=== PATIENT | female | born 1990 | race Caucasian/White ===

== ENCOUNTER 2019-12-21 08:54 | Emergency (ER) | payer OTHER ==
[2019-12-21 09:21] VITALS: TEMP 98.2; BMI 27.4
[2019-12-21] MEDS ORDERED: ONDANSETRON 4 MG/2 ML VIAL IVPUSH ONE (09:48)
[2019-12-21] MEDS ORDERED: SODIUM CHLORIDE 0.9% 500 ML INFUS.BAG IV ONE (09:48)
--- OUTSIDE RECORDS SUMMARY | 2019-12-21 10:06 | XMS ---
:1990 Author Organization [facility] Care Team Providers Name Role Phone RAJIWNDER AVALOS, ZINA Unavailable RAJWINDER AVALOS, ZINA Unavailable RAJWINDER AVALOS, ZINA Unavailable RAJWINDER AVALOS, ZINA Unavailable ED STAFF PHYSICIANBERNABE Unavailable Unavailable KENN HARVEY Unavailable Unavailable ED STAFF PHYSICIAN, STAFF Unavailable Unavailable JOCELYNE AVALOS, SAUD Unavailable SAUD CASANOVA MD Unavailable JOCELYNE AVALOS, SAUD Unavailable SAUD CASANOVA MD Unavailable JOCELYNE AVALOS, SAUD Unavailable Rachel Purdy Unavailable [phone] ED STAFF PHYSICIAN, DONNA Unavailable Unavailable Margaret AVALOS, Mary Beth Unavailable Unavailable LEVY CNM, RAJI Unavailable LEVY CNM, RAJI Unavailable JUSTO MATERNITY NURSE, GEMINI Unavailable JUSTO MATERNITY NURSE, GEMINI Unavailable SHELTON AVALOS, HUMA Unavailable SHELTON AVALOS, HUMA Unavailable SHELTON AVALOS, HUMA Unavailable ELIA AVALOS, ERROL Unavailable ELIA AVALOS, ERROL Unavailable ELIA AVALOS, ERROL Unavailable SALO SAMPSON, JANETH Unavailable DEAN AVALOS, YAKELIN Unavailable Dix, Francisca-Brittany Unavailable [phone] Dix, Francisca-Brittany Unavailable [phone] Chelsea Alcocer Unavailable [phone] PRISCILA PAT Unavailable PRISCILA PAT Unavailable Re-disclosure Warning The records that you are about to access may contain information from federally- assisted alcohol or drug abuse programs. If such information is present, then the following federally mandated warning applies: This information has been disclosed to you from records protected by federal confidentiality rules (42 CFR part 2). The federal rules prohibit you from making any further disclosure of this information unless further disclosure is expressly permitted by the written consent of the person to whom it pertains or as otherwise permitted by 42 CFR part 2. A general authorization for the release of medical or other information is NOT sufficient for this purpose. The Federal rules restrict any use of the information to criminally investigate or prosecute any alcohol or drug abuse patient.The records that you are about to access may contain highly sensitive health information, the redisclosure of which is protected by Article 27-F of the [facility] Public Health law. If you continue you may haveaccess to information: Regarding HIV / AIDS; Provided by facilities licensed or operated by the [facility] Office of Mental Health; or Provided by the [facility] Office for People With Developmental Disabilities. If such information is present, then the following [facility] mandated warning applies: This information has been disclosed to you from confidential records which are protected by state law. State law prohibits you from making any further disclosure of this information without the specific written consent of the person to whom it pertains, or as otherwise permitted by law. Any unauthorized further disclosure in violation of state law may result in a fine or [place] health care facility sentence or both. A general authorization for the release of medical or other information is NOT sufficient authorization for further disclosure. 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 Data Description Source(s ) Other Directive completed NEXT GEN ([facility]) Tube Feedings completed NEXTGE N ([facility]) IV Fluid and completed NEXTGEN Support ([facility]) Antibiotics [facility] Intubation completed [facility]) Life Support completed [facility] ([facility]) CPR completed NEXTGEN ([facility]) Other Directive completed NEXT GEN ([facility]) Tube Feedings completed NEXTGE N ([facility]) IV Fluid and completed NEXTGEN Support ([facility]) Antibiotics [facility] ([facility]) Intubation completed NEXTGEN ([facility]) Life Support completed COUNTS INCLUDE 234 BEDS AT THE [facility] ([facility]) CPR completed COUNTS INCLUDE 234 BEDS AT THE [facility] ([facility]) Allergies and Adverse Reactions Type Description Substance Reaction Status Data Source(s ) Allergy to No Known No known VIKTOR (Moun t substance Allergies allergies Zafar ([facility]3]) [facility]) Drug allergy Azithromycin Azithromycin (moderate to NEXTGE N ([facility]) [facility] moderate to Center) severe No Known No Known No Known eCW3 ([place] Allergies Allergies Allergies [facility]) No Known No Known No Known eCW3 ([place] Allergies Allergies Allergies [facility]) No Known No Known No Known eCW3 ([place] Allergies Allergies Allergies [facility]) Encounters Encounter Providers Location Date Indications Data Source(s ) Emergency Attender: DONNA ED H 02/02/2019 [facility] STAFF 10:39:00 AM EDT Medical C enter PHYSICIANAttender: - 02/02/2019 [facility] STAFF 01:34:00 PM EDT PHYSICIANAttender: STAFF ED STAFF PHYSICIANAdmitter: DONNA ED STAFF PHYSICIAN Patient discharged. Outpatient [place] 01/10/2019 eCW3 ([facility] 12:00:00 AM [facility] A28 EDT - Care) 01/10/2019 12:00:00 AM EDT Emergency H 08/11/2018 [facility] 12:59:00 AM Medical Cente r EDT Outpatient [place] 08/10/2018 eCW3 ([facility]:00:00 [facility] A[facility]T - Care) 08/10/2018 12:00:00 AM EDT Outpatient [place] 07/14/2018 eCW3 ([facility] 12:00:00 AM [facility] A28 EDT - Care) 07/14/2018 12:00:00 AM EDT Outpatient<td Attender: Suzan 05/09/2018 Neftalye VIKTOR (M ount ID="encounterT [facility] 10:30:00 AM ThroatSinusitis Oren on [facility] EST [facility] ID0">WALK[facility]</ 05/09/[address]) td><td>GEMINI 11:59:00 PM [facility]</td><td>[facility]</td><td >05/09/2018</t d><td><content ID="encounterD iagnosisID0-0" >Sinusitis</co ntent>, <content ID="encounterD iagnosisID0-1" >Sore Throat</conten t></td> Sore Throat Sinusitis Outpatient<td Attender: Suzan 03/04/2017 Pharyngitis VIKTOR ID="encounterTypeDescriptionID1">WALKINS</td><td>[facility] 09:00:00 AM (Kaci PURDY MD</td><td>[facility] RAJWINDER AVALOS [facility] EST [facility]</td><td>03/04/2017</td><td><content Center 02/05 Health ID="encounterDiagnosisID1-0">Pharyngitis</content></td> 09:32:18 AM Center) EST Pharyngitis Outpatient<td Attender: Suzan 02/01/2017 VIKTOR ID="encounterTypeDescriptionID2">OFFICE [facility] 10:30:0 0 AM ([place] VISIT</td><td>RAJI LEVY LEVYLOS [facility] Health EDT - [facility]</td><td>[facility] 02/01/2017 Health Center</td><td>02/01/2017</td><td></td> 10:50:5 9 AM Center) EDT Outpatient<td Attender: Suzan 01/25/2017 A VIKTOR ID="encounterTypeDescriptionID3">OFFICE [facility] 11:00:0 0 AM s ([place] VISIT</td><td>RAJI LEVY LEVYLOS [facility] Health EDT - [facility]</td><td>[facility] 01/25/2017 e Health Center</td><td>01/25/2017</td><td><jarrod 12:25: 31 PM s Center) nt EDT s ID="encounterDiagnosisID3-0">Assessment m [use For S.o.a.p. Note Free e Text]</content></td> n t [ u s e F o r S . o . a . p . N o t e F r e e T e x t ] Assessment [use For S.o.a.p. Note Free T ext] Outpatient<td Attender: Suzan 01/13/2017 Familial VIKTOR ID="encounterTypeDescriptionID4">OFFICE [facility] 0 9:30:00 AM Hypertriglyceridemia ([place] VISIT</td><td>[facility] EDT - [facility]</td><td>[facility] MATERNITY NURSE Center 01/13/2017 Health Center</td><td>01/13/2017</td><td><content 10:1 6:24 AM Center) ID="encounterDiagnosisID4-0">Familial EDT Hypertriglyceridemia</content></td> Familial Hypertriglyceridemia Outpatient<td Attender: Suzan 01/12/2017 UKIAH ID="encounterTypeDescriptionID5">*OUTREACH*</td><td>[facility] 06:17:00 PM ([facility]</td><td>[facility] E DT - Neighborhood Center</td><td>01/12/2017</td><td></td> MATERNITY NURSE Center 017 Health 11:59:00 PM Center) EDT Outpatient<td ID="encounterTypeDescriptionID6">OFFICE Attender: Suazn 01/06/2017 [place] VISIT</td><td>[facility]</td><td>[facility] 09:15:00 AM ([facility]</td><td>01/06/2017</td><td></td> [facility] EDT - Neighborhood MATERNITY NURSE Center 01/06/2017 Health 11:07:59 AM Center) EDT Outpatient<td Attender: Suzan 09/14/2016 UKIAH ID="encounterTypeDescriptionID7">*OUTREACH*</td><td>[facility] 09:33:00 AM ([facility]</td><td>[facility] E DT - Neighborhood Center</td><td>09/14/2016</td><td></td> MATERNITY NURSE Center 017 Health 11:59:00 PM Center) EDT Outpatient<td Attender: Suzan 09/11/2016 O UKIAH ID="encounterTypeDescriptionID8">WALKINS</td><td>[facility] 09:30:00 AM v ([facility]</td><td>[facility] Health E DT - e Neighborhood Center</td><td>09/11/2016</td><td><content MATERNITY NURSE Center 12/2016 Health ID="encounterDiagnosisID8-0">Sinusitis</content>, <content 11:16:56 AM w Center) ID="encounterDiagnosisID8-1">Sore Throat</content>, EDT e <content i ID="encounterDiagnosisID8-2">Overweight</content></td> g h t S o r e T h r o a t S i n u s i t i s Overweight Sore Throat Sinusitis Outpatient<td Attender: Suzan 03/25/2016 UKIAH ID="encounterTypeDescriptionID9">[facility] 12:30:00 P M ([place] [facility]</td><td>ERROL RODRIGEZ MD [facility] EST - Neighborhood </td><td>[facility] 03/25/2016 Health Center</td><td>03/25/2016</td><td></td> 02:22:2 0 PM Center) EST Outpatient<td Attender: Suzan 03/14/2016 UKIAH ID="nuptzfyawAzwyPdbksicuhhtLL92">[facility] 03:22: 00 PM ([place] [facility]*</td><td>ERROL RODRIGEZ MD [facility] EST - Neighborhood </td><td>[facility] 03/14/2016 Health Center</td><td>03/14/2016</td><td></td> 11:59:0 0 PM Center) EST Outpatient<td Attender: Suzan 03/09/2016 UKIAH ID="lqkuxmvuxQzgoQtntlhyirjeNL24">[facility] 09:[facility]: [facility] AM ([place] </td><td>ERROL RODRIGEZ MD Health EST - Neighborhood </td><td>[facility] 03/09/2016 Health Center</td><td>03/09/2016</td><td></td> 02:23:3 4 PM Center) EST Outpatient<td Attender: Suzan 11/14/2015 VIKTOR ID="maqkblczfZdiuSecylybcmexCI09">*No [facility] 03:15:00 PM ([place] Show*</td><td>[facility] EDT - Neighborhood RD</td><td>[facility] 11/14/2015 Health Center</td><td>11/14/2015</td><td></td> 11:59:0 0 PM Center) EDT Outpatient<td Attender: Suzan 09/23/2015 VIKTOR ID="lrrwkhfiyNwfeAywlbolljilOS27">Follow ZINA [facility] 09:00: 00 AM ([place] Up</td><td>ZINA PURDY MD [facility] EDT - [facility] </td><td>[facility] 09/23/2015 Health Center</td><td>09/23/2015</td><td></td> 09:48:0 3 AM Center) EDT Outpatient<td Attender: 09/17/2015 VIKTOR ID="cyzkdfhgcUaumIcthkftjzkkCP22">[Bang IZAGUIRRE 04:01: 00 PM ([place] nt Encounter]</td><td>ZINA PURDY MD EDT - Neighborhood </td><td> 09/17/2015 Health </td><td>09/17/2015</td><td></td> 11:59:00 PM Center) EDT Outpatient<td Attender: 09/16/2015 VIKTOR ID="qyxualhszLkmiVwejzrmjqdfCP26">[Bang IZAGUIRRE 10:10: 00 AM ([place] nt Encounter]</td><td>ZINA PURDY MD EDT - Neighborhood </td><td> 09/16/2015 Health </td><td>09/16/2015</td><td></td> 11:59:00 PM Center) EDT Outpatient<td Attender: Suzan 09/11/2015 VIKTOR ID="dowupbltxTpcgNdnrggyoybeMK71">OFFICE [facility] 02:30: 00 PM ([place] VISIT</td><td>ZINA PURDY MD Health EDT - Neighborhood </td><td>[facility] 09/11/2015 Health Center</td><td>09/11/2015</td><td></td> 02:58:3 6 PM Center) EDT Outpatient<td Attender: Suzan 07/15/2015 A VIKTOR ID="ouqqbxkytNjwdHctqyztudmpSD26">[facility] 09:45: 00 AM b ([place] S</td><td>[facility] EDT - d [facility] MATERNITY NURSE</td><td>Critical access hospital Center 07/15/2015 o Health Center</td><td>07/15/2015</td><td><jarrod 10:54: 28 AM m Center) nt EDT i ID="dylgrutucBodhpmngmKY85-9">Abdominal n Pain</content></td> a l P a i n Abdominal Pain Outpatient<td Attender: Suzan 05/29/2015 Vitamin VIKTOR ID="wgdetzalkYhthXqkjyfbcenhRF79">[facility]</td><td>[facility] 09:00:00 AM Deficiency ([place] [facility]</td><td>[facility] E ST - Neighborhood Center</td><td>05/29/2015</td><td><content MATERNITY NURSE Center 05/07 Health ID="ayqnlpujnPvljbpnfvKZ39-7">Vitamin 11:06:48 AM Center) Deficiency</content></td> EST Vitamin Deficiency Outpatient<td Attender: Suzan 05/22/2015 Polycystic VIKTOR ID="yjtxcxinhQpupEtduichmgxtKN48">Follow [facility] 09:30: 00 AM Ovarian (Kaci Stephen Up</td><td>ERROL RODRIGEZ MD Health EST - Syndrome Neighborhood </td><td>[facility] 05/22/2015 (pcos) Health Center</td><td>05/22/2015</td><td><content 01:1 6:34 PM Center) ID="nmoocjqxdVovueasxqRG80-9">Polycystic EST Ovarian Syndrome (pcos)</content></td> Polycystic Ovarian Syndrome (pcos) Outpatient<td Attender: Suzan 05/17/2015 PrediabetesHyperlipide miaVitamin UKIAH ID="gjnbzktwpHlfoGjukujfpkssCO29">[facility]</td><td>[facility] 12:15:00 PM DeficiencyOtitis MediaSore Throat ([facility]</td><td>[facility] E ST - Neighborhood Center</td><td>05/17/2015</td><td><content MATERNITY NURSE Center 05/06 Health ID="hfjhxnseiQecmgdwyaBJ27-6">Sore Throat</content>, 01:39:37 PM Center) <content ID="porbrjlylMraxsrzhqTX63-5">Otitis E ST Media</content>, <content ID="myrfutnexXpjokxnctDC34-8">Vitamin Deficiency</content>, <content ID="kvbnqannrMbfckjitfZV46-2">Hyperlipidemia</content>, <content ID="ezeydgkhzWjdqjtdznSL94-7">Prediabetes</content></td> Prediabetes Hyperlipidemia Vitamin Deficiency Otitis Media Sore Throat Outpatient<td ID="pvtubbmyoHnbhBkqdvmgktpbVW67">Follow Attender: Suzan 05/13/2015 Pharyngitis VIKTOR Up</td><td>[facility]</td><td>[facility] 09:30:00 AM ([facility]</td><td>05/13/2015</td><td><content [facility] EST - Neighborhood ID="ekordhdixZydyvywwdLW02-1">Pharyngitis</content></td> MATERNITY NURSE C enter 05/13/2015 Health 09:39:31 AM Center) EST Pharyngitis Outpatient<td Attender: Suzan 05/07/2015 VIKTOR ID="mrkrjbqpnQlmkOamtraglkdyFA92">Regular [facility] 06:00 :00 PM ([place] Sonogram</td><td>YAKELIN MORAN MD [facility]</td><td>[facility] 05/07/2015 Health Center</td><td>05/07/2015</td><td></td> 11:59:0 0 PM Center) EST Outpatient<td Attender: Suzan 05/06/2015 VIKTOR ID="rnxhrbyalZvzfDzpkffbilyvHS94">[facility] 04:1 5:00 PM (Kaci Stephen /td><td>[facility]</td><td>[facility] Center 05/06/2015 Health Center</td><td>05/06/2015</td><td></td> 02:50:4 3 PM Center) EST Outpatient<td Attender: Suzan 05/06/2015 VIKTOR ID="qowtsgodkAjyuVzkwaolctegXY42">[facility] 02:0 0:00 PM ([place] [place] /td><td>ERROL RODRIGEZ MD</td><td>Suzan RODRIGEZ MD [facility] 05/06/2015 Health Center</td><td>05/06/2015</td><td></td> 10:10:1 1 AM Center) EST Outpatient<td Attender: Suzan 05/02/2015 VIKTOR ID="zmhjkcxckEcumUntnhtvlcdkOE10">[facility] 09:0 0:00 AM ([place] Stephen /td><td>ERROL RODRIGEZ MD</td><td>Suzan RODRIGEZ MD [facility] 05/02/2015 Health Center</td><td>05/02/2015</td><td></td> 11:59:0 0 PM Center) EST Outpatient<td Attender: Suzan 04/09/2015 VIKTOR ID="bnjruefjuYvawBrzgodusinsUU53">*[facility] 03:24:00 PM ([place] Show*</td><td>ERROL RODRIGEZ MD Health EST - Neighborhood MD</td><td>[facility] Center 04/09/2015 Health Center</td><td>04/09/2015</td><td></td> 11:59:0 0 PM Center) EST Outpatient<td Attender: Suzan 04/09/2015 VIKTOR ID="azqjfjghqKdikNeucqheqjvjKE21">[facility] 09:1 5:00 AM (Kaci Stephen /td><td>[facility] EST - Neighborhood MD</td><td>[facility] 04/09/2015 Health Center</td><td>04/09/2015</td><td></td> 10:18:5 7 AM Center) EST Outpatient<td Attender: Suzan 03/28/2015 VIKTOR ID="fpaltxfdxJozbEznapeblwxmUI74">*[facility] 02:28:00 PM ([place] [facility] Show*</td><td>[facility] EST - Neighborhood RD</td><td>[facility] 03/28/2015 Health Center</td><td>03/28/2015</td><td></td> 11:59:0 0 PM Center) EST Outpatient<td Attender: Suzan 03/11/2015 VIKTOR ID="ozbnjjsbrQxxiQxhcgtdpucoWV92">OFFICE [facility] 01:45: 00 PM ([place]aci Stephen VISIT</td><td>ZINA PURDY MD Health EST - Neighborhood MD</td><td>[facility] Center 03/11/2015 Health Center</td><td>03/11/2015</td><td></td> 03:17:4 2 PM Center) EST Outpatient<td Attender: Suzan 02/04/2015 VIKTOR ID="ksqlxtcqcTaxtMjivvllegieXJ24">Follow [facility] 09:30: 00 AM ([place] Up</td><td>JANETH LEONG [facility] EST - Neighborhood INFORMATION SECURITY CONSULTANT</td><td>[facility] 02/04/2015 Health Center</td><td>02/04/2015</td><td></td> 09:50:4 7 AM Center) EST Outpatient<td Attender: Suzan 02/01/2015 VIKTOR ID="bhzwqxjcaAnsiFbhlqrgdclaIV41">Follow [facility] 09:30: 00 AM ([place] Up</td><td>ZINA PURDY MD</td><td>Suzan PURDY MD Health EDT - [facility] 02/01/2015 Health Center</td><td>02/01/2015</td><td></td> 09:45:1 7 AM Center) EDT Outpatient<td Attender: Suzan 01/24/2015 P UKIAH ID="idosjfzrjFilxIzffwdrpwzrPJ15">Follow [facility] 09:30: 00 AM u ([place] Up</td><td>ZINA PURDY MD</td><td>Suzan PURDY MD Health EDT - [facility] 01/24/2015 e Health Center</td><td>01/24/2015</td><td><content 10:4 6:19 AM H [place]) ID="edecrhlutWzlfnejdrFB21-8">Gout</conten EDT y t>, <content p ID="vnwzbgewoXfibtsumzNZ27-5">Pure e Hyperglyceridemia</content></td> r g l y c e r i d e m i a G o u t Pure Hyperglyceridemia Gout Outpatient<td Attender: 01/22/2015 VIKTOR ID="aodzaojjaTavtFbgdzdnljmcIS36">[Patient RINEnoch 03:3 5:00 PM (Kaci Stephen Encounter]</td><td>ZINA PURDY MD</td><td> RAJWINDER AVALOS EDT - [facility] 01/22/2015 Health </td><td>01/22/2015</td><td></td> 11:59:00 PM Center) EDT Outpatient<td Attender: Dillan 01/21/2015 VIKTOR ID="kmjbddtakHtnuFnyphnceolnHM92">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 ers 09:00:00 AM ([place] ANNUAL</td><td>JANETH LEONG Comm EDT - [facility] INFORMATION SECURITY CONSULTANT</td><td>[facility] INFORMATION SECURITY CONSULTANT unit 01/21/2015 Health Center</td><td>01/21/2015</td><td></td> y 10:43:1 6 AM Center) Heal EDT th Cent er Outpatient<td Attender: Dillan 01/16/2015 Wilber HOANG ID="pvrefzreiZzshPoozxqlpgakMX84">COMPLETE RINY ers 11:0 0:00 AM ine ([place] PHYSICAL EXAM</td><td>ZINA PURDY MD Comm EDT - [facility] </td><td>[facility] unit 01/16/2015 [facility]</td><td>01/16/2015</td><td><content y 12:4 5:41 PM and Center) ID="jmrfstgkhTqttorpwyOR54-1">Gout</content Heal EDT Phys >, <content th ical ID="oejfxepezLbxupwnbwEP53-3">Routine Cent Adul History and Physical Adult (18 - 64 er t Yrs)</content></td> (18 - 64 Yrs) Gout Routine History and Physical Adult (18 - 64 Yrs) Gout [facility] 12/19/2014 NEXTGEN (Sa int Center 03:17:00 PM [facility] Medic al EDT - Center) 12/19/2014 03:17:00 PM EDT Attender: [facility] 12/04/2014 NEXTGEN (Sa int [place] [facility] 06:39:00 PM Herac[facility] Medic al [place] EDT - Center) a 12/04/2014 06:39:00 PM EDT Attender: [facility] 06/28/2014 NEXTGEN (Sa int [place] [facility] 05:29:00 PM Heraclio Medic al [place] EDT - Center) 06/28/2014 05:29:00 PM EDT Attender: [facility] 06/01/2014 NEXTGEN (Sa int PRISCILA Center 09:29:00 AM [facility] Medic al ADILIA EST - Center) 06/01/2014 09:29:00 AM EST Attender: [facility] 05/28/2014 NEXTGEN (Sa int [place] Center 10:15:00 AM [facility] Medic al [place] EST - Center) 05/28/2014 10:15:00 AM EST Attender: [facility] 04/09/2014 NEXTGEN (Sa int [place] [facility] 03:39:00 PM [facility] Medic al [place] EST - Center) 04/09/2014 03:39:00 PM EST Attender: [facility] 03/27/2014 NEXTGEN (Sa int [facility] Center 04:49:00 PM Heraclio rosario MD EST - Center) 03/27/2014 04:49:00 PM EST Attender: [facility] 02/02/2014 NEXTGEN (Sa int [place] Center 10:44:00 AM [facility] Medic al [place] EDT - Center) 02/02/2014 10:44:00 AM EDT [facility] 01/18/2014 NEXTGEN (Sa int Center 09:44:00 AM [facility] Medic al EDT - Center) 01/18/2014 09:44:00 AM EDT Attender: [facility] 01/10/2014 NEXTGEN (Sa int [facility] Center 10:33:00 AM Heraclio Med icabay EDT - Center) 01/10/2014 10:33:00 AM EDT Attender: [facility] 01/05/2014 NEXTGEN (Sa int [place] Center 10:43:00 AM Herac[facility] Medic al [place] EDT - Center) 01/05/2014 10:43:00 AM EDT Attender: [facility] 12/25/2013 NEXTGEN (Sa int [place] Center 01:27:00 PM Heraclio Medic al [place] EDT - Center) 12/25/2013 01:27:00 PM EDT Attender: Family [facility] 12/11/2013 NEXTGEN (Sa int [facility] Center 09:14:00 AM Heraclio rosario MD EDT - Center) 12/11/2013 09:14:00 AM EDT Outpatient<td Attender: Suzan 01/20/2013 VIKTOR armstrongnt ID="Jakob MISTRYN [facility] 11:39:00 AM Zafar CASANOVA MD Health Center EDT - Neigh borhood 36">*No 01/20/2013 Health Center) Show*</td><td>R 11:59:00 PM LAMONT EDWARDS MD</td><td>[facility]</td><td> 01/20/2013</td> <td></td> Outpatient<td Attender: Suzan 01/13/2013 [facility] 09:29[facility]00 AM [use For Zafar NarvaezcriptGerardo CASANOVA MD [facility] Center EDT - S.o.a.p. Note Ne ighborhood 37">COMPLETE 01/13/2013 Free Text] Health Cente r) PHYSICAL 11:05:43 AM EXAM</td><td>RO EDT HINA CASANOVA MD</td><td>[facility]</td><td> 01/13/2013</td> <td><content ID="encounterDi hzlngulYI26-5"> Assessment [use For S.o.a.p. Note Free Text]</content> </td> Assessment [use For S.o.a.p. Note Free T ext] Immunizations Vaccine Date Status Description Data Source(s) MMR 11/23/2019 11:02:00 completed eCW3 ([place] [facility]) New in 2011. IIV4 01/30/2019 02:31:00 completed eC W3 ([place] [facility] Health Care) MMR 08/10/2018 08:31:00 completed eCW3 ([place] [facility] Health Care) MMR 08/10/2018 08:31:00 completed eCW3 ([place] [facility] Health Care) Tdap 07/14/2018 04:01:00 completed eCW3 ([place] [facility] Health Care) Tdap 07/14/2018 04:01:00 completed eCW3 ([place] [facility] [facility]) New in 2011. IIV4 12/27/2017 04:35:00 completed eC W3 ([place] [facility]) IIV3. This 01/06/2017 completed Influenza 2 01/06/2017 Left Active [facility] is one of 10:43:00 AM Deltoid (Administered) Neighborhood ([facility] Neighborhood replacing Heal th CVX 15, Center ) which is being retired. Note: Administered as ordered no c/o, Pa tient is held for 30 mins of observation before discharge. MJ IIV3. This 01/16/2015 completed Influenza 1 01/16/2015 Left Active [place] VIKTOR is one of 01:18:00 PM Arm (Administered) [facility] ([facility] Neighborhood replacing [facility] th CVX 15, Center ) which is being retired. IIV3. This vaccine 01/05/2014 12:00:00 completed flu (split) NE XTGEN ([facility] code is one of two AM EDT preservative free, 3 J [facility] Medical which replace CVX yrs or older Center) 15, influenza, split virus. Source: New Immunization Record As of December 1998, a 12/11/2013 12:00:00 completed Hep B (jayne lt) NEXTGEN ([facility] 2-dose hepatitis B AM EDT Herac[facility] schedule for [place]) adolescents (11-15 year olds) was FDA approved for Merck's Recombivax HB adult formulation. Use code 43 for the 2-dose. This code should be used for any use of standard adult formulation of hepatitis B vaccine. Source: New Immunization Record Tdap 12/11/2013 12:00:00 AM EDT completed Tdap N EXTGEN ([facility]) Source: New Immunization Record HPV, quadrivalent 12/11/2013 12:00:00 AM EDT completed HPV NEXTGEN ([facility]) Source: New Immunization Record Medications Medication Brand Start Product Dose Route Administrative Pharmacy [facility] Indications Reaction Description Data Name Date Form Instructions Instructions Source(s) Ibuprofen Ibupro 11/28/ active Ibuprofen eCW3 600 MG Oral fen 2020 600 MG ([place] n Tablet 600 MG 12:00: [place] 00 AM Health EDT Care) Clarithromy Clarit 1.0 suspend Clarit hromyc eCW3 yoko 500 MG hromyc 2020 {tabl ed in 500 MG ( [place] Oral Tablet in 500 12:00: et} Rive r MG 00 AM Health EDT Care) Amoxicillin Amoxic 09/11/ 2.0 suspend Amoxic illin eCW3 500 MG Oral illin 2020 {caps ed 500 MG (Hud son Capsule 500 MG 12:00: ule} [place] 00 AM Health EDT Care) pantoprazol Pantop 1.0 suspend Pantop razole eCW3 e 40 MG razole 2019 {tabl ed Sodium 40 MG ( [place] Delayed Sodium 12:00: et} [place] Release 40 MG 00 AM Health Oral Tablet EDT Care) Pantoprazol e Sodium 40 MG Sulligent 3 Sulligent .0 active Sulligent 3 1200 eCW3 1200 MG 3 1200 2019 {caps MG ([place] MG 12:00: ule} [place] 00 AM Health EDT Care) Hydrocortis Hydroc .0 active Hydroco rtiso eCW3 one 10 ortiso 2019 {appl ne 1 % ([place] MG/ML ne 1 % 12:00: icati [place] Topical 00 AM on} Health Cream EDT Care) Hydrocortis one 1 % Loratadine Clarit 05/09/ UNIT 1 active Claritin VIKTOR 10 MG Oral in 2019 ([place] Capsule 10MG 12:00: Zafar Claritin Oral 00 AM [place] 10MG Oral Capsul EST od Healt h Capsule, e, Center) conventiona conven l tional Amoxicillin Augmen 05/09/ UNIT 1 active Augment in VIKTOR 875 MG / tin 2018 ([facility] Clavulanate 875-12 12:00: Oren on 125 MG Oral 5MG 00 AM [place] rho Tablet Oral EST od Health Augmentin Tablet Center) 875-125MG Oral Tablet 60 ACTUAT Ventol 05/09/ INHALATI active Kathleen shereen VIK[place] Albuterol in HFA 2019 ON ([facility] 0.09 108 12:00: DOSING Zafar MG/ACTUAT (90 00 AM UNIT [place] Metered Base)M EST od Health Dose CG/ACT Center) Inhaler Inhala Ventolin tion HFA 108 (90 Aeroso Base)MCG/AC l, T soluti Inhalation on Aerosol, solution Ergocalcife Ergoca .0 active Ergocal cifer eCW3 rol 02184 lcifer 2017 {caps ol 80333 (Hu dson UNT Oral ol 12:00: ule} UNIT [place] Capsule 14070 00 AM Health Ergocalcife UNIT EDT Care) rol 30757 UNIT Ergocalcife Ergoca 1.0 active Ergocal cifer eCW3 rol 26319 lcifer 2018 {caps ol 71193 (Hu dson UNT Oral ol 12:00: ule} UNIT [place] Capsule 20039 00 AM Health Ergocalcife UNIT EDT Care) rol 13950 UNIT Ergocalcife Ergoca 08/31/ 1.0 active Ergocal cifer eCW3 rol 33236 lcifer 2018 {caps ol 99327 (Hu dson UNT Oral ol 12:00: ule} UNIT [place] Capsule 85511 00 AM Health Ergocalcife UNIT EDT Care) rol 11709 UNIT Amoxicillin Amoxic 03/04/ UNIT 1 active Amoxici llin VIKTOR 500 MG Oral illin 2016 ([place] Tablet 500MG 12:00: Zafar Amoxicillin Oral 00 AM Neigh[place] rho 500MG Oral Tablet EST od Heal th Tablet Center) No OTC No OTC 01/06/ UNIT active No OTC Drugs VIK[facility] Drugs Oral Drugs 2016 ([place] Tablet Oral 12:00: Zafar Tablet 00 AM [place] EDT od Health Center) Acetaminoph Tyleno 09/11/ UNIT complet Tyleno l VIKTOR en 325 MG l 2016 ed ([place] Oral Tablet 325MG 12:00: Verno n Tylenol Oral 00 AM [place] 325MG Oral Tablet EDT od Heal th Tablet Center) Loratadine Clarit 09/11/ UNIT 1 complet Clariti n VIKTOR 10 MG Oral in 2016 ed ([place] Capsule 10MG 12:00: Zafar Claritin Oral 00 AM [place] 10MG Oral Capsul EDT od Healt h Capsule, e, Center) conventiona conven l tional Amoxicillin Augmen 09/11/ UNIT 1 complet Augmen tin VIKTOR 875 MG / tin 2016 ed ([place] Clavulanate 875-12 12:00: Oren on 125 MG Oral 5MG 00 AM [place]igh[place]ho Tablet Oral EDT od Health Augmentin Tablet Center) 875-125MG Oral Tablet valacyclovi Valtre 03/09/ UNIT complet Valtre x VIKTOR r 500 MG x 500 2015 ed ([place] Oral Tablet MG 12:00: Zafar Valtrex 500 Tablet 00 AM Neigh borho MG Tablet EST od Health Center) Fenofibrate Tricor 09/22/ UNIT 1 active Tricor VIKTOR 145 MG Oral 145 MG 2015 ([place] Tablet Tablet 12:00: Zafar Tricor 145 00 AM Neighbor ho MG Tablet EDT od Health Center) Fenofibrate Tricor 09/10/ UNIT 1 active Tricor VIKTOR 48 MG Oral 48 MG 2015 ([place] Tablet Tablet 12:00: Zafar Tricor 48 00 AM Neighborh o MG Tablet EDT od Health Center) Ibuprofen Ibupro 07/14/ UNIT complet Ibuprofe n VIKTOR 600 MG Oral fen 2015 ed ([place] Tablet 600 MG 12:00: Zafar Ibuprofen Tablet 00 AM Neigh[place] rho 600 MG EDT od Health Tablet Center) Ergocalcife Drisdo 05/29/ UNIT complet Drisdo l VIKTOR rol 89117 l 2015 ed ([place] UNT Oral 18680 12:00: Zafar Capsule UNIT 00 AM [place] Drisdol Capsul EST od Health 98077 UNIT e Center) Capsule Amoxicillin Amoxic 05/17/ UNIT 1 complet Amoxic illin VIKTOR 500 MG Oral illin 2015 ed ([place] Tablet 500 MG 12:00: Zafar Amoxicillin Tablet 00 AM Neigh borho 500 MG EST od Health Tablet Center) Benzocaine Cepaco 05/13/ UNIT 1 complet Cepacol Sore VIKTOR 15 MG / l Sore 2015 ed Throat Pain (Mo unt Menthol 2.6 Throat 12:00: Relief Ve rnon MG Oral 15-2.6 00 AM [place] o Lozenge MG EST od Health Cepacol Lozeng Center) Sore Throat e 15-2.6 MG Lozenge medroxyprog Catalogue Clerk 05/06/ UNIT 1 complet Catalogue Clerk a VIKTOR esterone a 2015 ed ([place] acetate 10 MG 12:00: Zafar MG Oral Tablet 00 AM Neighbor[facility] o Tablet EST od Health Provera 10 Center) MG Tablet medroxyprog Catalogue Clerk 05/06/ UNIT 1 complet Catalogue Clerk a VIKTOR esterone a 10 2015 ed ([place] acetate 10 MG 12:00: Zafar MG Oral Tablet 00 AM Neighborh o Tablet EST od Health Provera 10 Center) MG Tablet Fenofibrate Tricor 01/24/ UNIT 1 active Tricor VIKTOR 48 MG Oral 48 MG 2014 ([place] Tablet Tablet 12:00: Zafar Tricor 48 00 AM Neighborh o MG Tablet EDT od Health Center) Colchicine Colchi 01/24/ UNIT 1 active Colchici ne VIKTOR 0.6 MG Oral cine 2014 ([place] Tablet 0.6 MG 12:00: Zafar Colchicine Tablet 00 AM Neighb orho 0.6 MG EDT od Health Tablet Center) Indomethaci indome .00 ORAL active take 1 NEXTGEN n 50 MG thacin 2014 {caps capsule by (Sa int Oral 50 mg 12:00: ule} oral route 3 Joseph phs Capsule capsul 00 AM times every Me dical indomethaci e EDT day with Cent er) n 50 mg food capsule Medrol {21 12/04/ active Medrol NEXTGEN (Todd) 4 mg (Methy 2015 Dosepak (Jules nt tablets in lpredn 12:00: Richar hs a dose pack isolon 00 AM Medic al e 4 MG EDT Center) Oral Tablet ) } Pack Please provide instructions in azerbaijani Ortho {7 (Ethinyl 06/28/2014 1.00 ORAL active Orth o NEXTGEN Tri-Cyclen Estradiol 12:00:00 AM {tbl} T ri-Cyclen ([facility] (28) 0.18 0.035 MG / EDT 28 Day Pa ck Heraclio mg(7)/0.215 norgestimate Medical mg(7)/0.25 0.18 MG Oral C enter) mg(7)-35 mcg Tablet) / 7 tablet (Ethinyl Estradiol 0.035 MG / norgestimate 0.215 MG Oral Tablet) / 7 (Ethinyl Estradiol 0.035 MG / norgestimate 0.25 MG Oral Tablet) / 7 (Inert Ingredients 1 MG Oral Tablet) } Pack Amoxicillin Augmentin 875 06/01/2014 1.00 ORAL complete Amoxicillin NEXTGEN 875 MG / mg-125 mg 12:00:00 AM {tbl} d 875 MG / ([facility] Clavulanate tablet EST Clavulanate Heraclio 125 MG Oral 125 MG Oral M edical Tablet Tablet Center) [Augmentin] [Augmentin] Augmentin 875 mg-125 mg tablet Azithromycin azithromycin 04/09/2014 2.00 ORAL complete take 2 NEXTGEN 500 MG Oral 500 mg tablet 12:00:00 AM {tbl} d tablet by ([facility] Tablet EST oral route Heraclio azithromycin once Medical 500 mg tablet Center ) Azithromycin azithromycin 01/10/2014 2.00 ORAL complete take 2 NEXTGEN 500 MG Oral 500 mg tablet 12:00:00 AM {tbl} d tablet by ([facility] Tablet EDT oral route Heraclio azithromycin once Medical 500 mg tablet Center ) Ketoconazole Nizoral A-D 1 12/11/2013 TOPICA complete apply by NEXTGEN 10 MG/ML % shampoo 12:00:00 AM L d topi prisca ([facility] Medicated EDT route every Svetlana sephs Shampoo 3 days Medical Nizoral A-D [address]) % shampoo lather, rinse, and repeat selenium Selsun Blue 01/13/2013 SALOME complete Selsun Blue VIKTOR sulfide 10 Dry Scalp 1 % 12:00:00 AM LIC d ([place] MG/ML SHAM EDT ATI Zafar Medicated ON Neighborh Shampoo UNI ood Selsun Blue T Health Dry Scalp 1 % Center ) SHAM Ibuprofen 800 ibuprofen 800 1 complete [facility] MG Oral mg Tablet, d Jad s Tablet Ordered By: Medicamy hermosillo ibuprofen 800 Brenna Green, Center mg Tablet, PADirections: Ordered By: 1 tablet oral Brenna Green, every eight PADirections: hours PRN 1 tablet oral pain-moderate every eight hours PRN pain-moderate Amoxicillin amoxicillin-p 1 complete Saint 875 MG / ot donte Pulliam Clavulanate clavulanate M edical 125 MG Oral 875 mg-125 mg Center Tablet Tablet, amoxicillin-p Ordered By: ot Sargine clavulanate Arnold, 875 mg-125 mg MDDirections: Tablet, 1 tablet oral Ordered By: every twelve Sargine hours with or Dinesh, after food MDDirections: 1 tablet oral every twelve hours with or after food Famotidine 40 famotidine 40 1 complete Saint MG Oral mg d Heraclio Tablet TabletDirecti Medi prisca famotidine 40 ons: 1 tablet Center mg oral daily at TabletDirecti bedtime ons: 1 tablet oral daily at bedtime Naproxen 500 naproxen 500 1 complete Saint MG Oral mg Tablet, d Jad s Tablet Ordered By: Medicamy hermosillo naproxen 500 Sargine Cent er mg Tablet, Dinesh, Ordered By: MDDirections: Sargine 1 tablet oral Dinesh, twice a day MDDirections: 1 tablet oral twice a day Furosemide 20 Lasix 20 MG 1.0 active La six 20 MG eCW3 MG Oral {table ([place] Tablet t} [place] [Lasix] Lasix Health 20 MG Care) Insurance Providers Payer name Policy type / Policy ID Covered Covered alliance party's Policy Plan Coverage type alliance party ID relationship to Ortiz Information ortiz MANJIT [id number] [place] [address] MANJIT Jauregui [id number] 01 [id number] MANJIT W [id number] MVP/HHP O [id number] Nadeem Vision [id number] S [id number] MKD Dental [id number] S [id number] Dentaquest MKD Dental [id number] S [id number] Healthplex Essential Plan 3 Ambrose Hlth [id number] S [id number] Options Essential Plan 1 Superior [id number] S [id number] Vision Essential Plan 1 MVP Essential [id number] S [id number] HMO Plan 3 UH Spectera [id number] S [id number] Vision Essential Plan 3 4 Dental [facility] [id number] S [id number] Essential Plans United [id number] S [id number] Healthcare HMO Essential Plan 4 United [id number] S [id number] Healthcare MKD Community Plan Medicaid [id number] S [id number] Regular Clinic Visit Manjit Care [id number] S [id number] [place] Manjit Care Individual 0 Self 0 [place] Policy Problems, Conditions, and Diagnoses Code Display Name Description Problem Effective Data Type Dates Source(s) N94.6 Dysmenorrhea Dysmenorrhea Problem 11/29/2019 eCW3 ([place] 12:00:00 [facility] EDT Care) A04.8 Other specified Positive H. pylori Problem 09/12/2019 e CW3 ([place] bacterial intestinal test 12:00:00 [facility] EDT Care) R73.03 Pre-diabetes Pre-diabetes Problem 01/30/2019 eCW3 ([place] 12:00:00 [facility] EDT Care) R73.03 Pre-diabetes Pre-diabetes Problem 01/30/2019 eCW3 ([place] 12:00:00 [facility] EDT Care) N91.2 Amenorrhea Amenorrhea Problem 01/10/2019 eCW3 ([place] 12:00:00 [facility] EDT Care) N91.2 Amenorrhea Amenorrhea Problem 01/10/2019 eCW3 ([place] 12:00:00 [facility] EDT Care) N92.6 Irregular menstrual Irregular menstrual Problem 05/08/2 019 eCW3 ([place] bleeding bleeding 12:00:00 [facility] EDT Care) E66.9 Obesity Obesity Problem 12/27/2017 eCW3 ([place] 12:00:00 [facility] EDT Care) E55.9 Vitamin D deficiency Vitamin D deficiency Problem 09/14 eCW3 ([place] 12:00:00 [facility] EDT Care) E78.1 Hypertriglyceridemia Hypertriglyceridemia Problem 09/14 eCW3 ([place] 12:00:00 [facility] EDT Care) E78.1 Hypertriglyceridemia Hypertriglyceridemia Problem 09/14 eCW3 ([place] 12:00:00 [facility] EDT Care) E55.9 Vitamin D deficiency Vitamin D deficiency Problem 09/14 eCW3 ([place] 12:00:00 [facility] EDT Care) [id number] Gout (disorder) Gout Problem 01/16/2015 VIKTOR 12:00:[facility] [id number] Colitis Colitis Problem 03/27/2014 NEXTGEN 12:00:00 ([facility]) Y99.9 Unspecified external UNSPECIFIED EXTERNAL Diagnosis 02/02 [facility] cause status CAUSE STATUS 10:39:00 Medical AM EDT Center Y92.[address] AND Diagnosis [facility] 10:39:00 Medical of occurrence of the AM EDT Cent er external cause Y93.89 Activity, other ACTIVITY, OTHER Diagnosis 02/02/2019 Mari Pulliam specified SPECIFIED 10:39:00 Medical AM EDT Center W10.9XXA Fall (on) (from) FALL (ON) (FROM) Diagnosis 02/02/2019 Sa trevin Pulliam unspecified stairs and UNSPECIFIED STAIRS 10:39 :00 Medical steps, initial AND STEPS, INIT AM EDT Cente r encounter ENCNTR S93.401A Sprain of unspecified SPRAIN OF UNSPECIFIED Diagnosis [facility] Pulliam ligament of right LIGAMENT OF RIGHT 10:39:00 Medical ankle, initial ANKLE, INIT ENCNTR AM EDT Ce nter encounter H66.91 Otitis media, OTITIS MEDIA, Diagnosis 08/11/2018 [facility] Svetlana montoya unspecified, right ear UNSPECIFIED, RIGHT 12:59 :00 Medical EAR [facility] J02.9 Acute pharyngitis, Acute pharyngitis, Diagnosis 9 VIKTOR unspecified unspecified 04:03:00 ([facility]) Surgeries/Procedures Procedure Description Date Indications Data Source(s) Recent change in Recent change in 03/04/2017 GREENWA Y ([facility] medical history medical history 12:00:00 AM [facility]) No past medical No past medical 03/04/2017 VIKTOR ([facility] history reported history reported 12:00:[address] [facility]) History of No carotid History of No carotid 03/04/2017 VIKTOR ([facility] bruits bruits 12:00:00 AM [facility]) History of Eyes: History of Eyes: 03/04/2017 AAYUSH Y ([facility] normal normal 12:00:00 AM [facility]) No history of thyroid No history of thyroid 03/04/2017 VIKTOR ([facility] surgery surgery 12:00:00 AM [facility]) No history of surgery No history of surgery 03/04/2017 VIKTOR ([facility] 12:00:00 AM [facility]) No history of No history of 03/04/2017 VIKTRO ([place] prostatectomy prostatectomy 12:00:00 AM [facility]) No history of No history of 03/04/2017 VIKTOR ([place] hysterectomy hysterectomy 12:00:00 AM [facility]) No history of No history of 03/04/2017 VIKTOR ([place] appendectomy appendectomy 12:00:00 AM [facility]) Para 1 Para 1 01/26/2017 VIKTOR ([facility] 12:00:00 AM [facility]) LMP: 12/28/2016 LMP: 12/28/2016 01/26/2017 VIKTOR (M ount 12:00:00 AM [facility]) Last pap smear date Last pap smear date 01/26/2017 G LISANWAY ([facility] 03/2016 12:00:00 AM [facility]) 1 1 01/26/2017 VIKTOR ([facility] 12:00:00 AM [facility]) Date of last Date of last 01/06/2017 UKIAH ([facility] menstruation 12/28/2016 menstruation 12:00:00 AM [facility] 12/28/2016 [facility]) Advance healthcare Advance healthcare 09/11/2016 RIO FRANCO ([facility] directive not on file directive not on file 12:00:00 [facility]) Result: normal Result: normal 03/26/2016 UKIAH (M ount 12:00:00 AM [facility]) Not using Not using 03/26/2016 UKIAH ([facility] contraception contraception 12:00:00 AM [facility]) History of History of 03/26/2016 UKIAH ([facility] hyperlipidemia given hyperlipidemia given 12:00:00 AM [facility] tricor tricor [facility]3]) History of HIV History of HIV 03/26/2016 UKIAH (M ount infection Patrient infection Patrient 12:00:00 AM [facility] has gout.Patient is has gout.Patient is [facility]3]) given colchicine, given colchicine, Aborta 0 Aborta 0 03/26/2016 UKIAH ([facility] 12:00:00 AM [facility]) denies any venereal denies any venereal 03/26/2016 Gurdeep [facility] ([facility] diseases or abn pap diseases or abn pap 12:00:00 AM [facility] smear or HPV smear or HPV [facility]3]) No history of type 2 No history of type 2 09/23/2015 UKIAH ([facility] diabetes mellitus diabetes mellitus 12:00:00 AM [facility]) No history of No history of 09/23/2015 UKIAH ([place] nt essential hypertension essential 12:00:00 AM [facility] hypertension [facility]) No history of coronary No history of 09/23/2015 SUSAN CASE ([facility] artery disease coronary artery 12:00:00 AM [facility] disease [facility]) No history of blood No history of blood 02/13/2015 Gurdeep RENEE ([facility] transfusion transfusion 12:00:00 AM [facility]) History of obesity History of obesity 01/21/2015 RIO FRANCO ([facility] 12:00:00 AM [facility]) CYTOPATH TBS, C/V, 01/05/2014 NEXTGEN ( [facility] MANUAL 12:00:00 AM [facility] EDT - Center) 01/05/2014 12:00:00 AM EDT CHLAMYDIA CULTURE 01/05/2014 NEXTGEN (S aint 12:00:00 AM [facility] EDT - [place]) 01/05/2014 12:00:00 AM EDT CULTURE SCREEN ONLY 01/05/2014 NEXTGEN (Saint 12:00:00 AM [facility] EDT - [place]) 01/05/2014 12:00:00 AM EDT MEASURE BLOOD OXYGEN 01/05/2014 NEXTGEN ([facility] LEVEL 12:00:00 AM [facility] EDT - Center) 01/05/2014 12:00:00 AM EDT Results ID Date Data Source [id number] 05/09/2018 11:57:03 AM EST AAYUSH Kendall ([place] [id number] [facility]) Name Value Range Interpretation Description Data Source(s ) Supporting Code Document(s ) No Results No Results No Results VIKTOR ([facility] Recorded For [place] Specified [facility]) ID Date Data Source Urinalysis 02/15/2018 05:07:00 PM [facility] Name Value Range Interpretation Description Data Sup porting Code Source(s) Document(s ) Color of Urine YELLOW <content Saint styleCode="Anaid Heraclio d">Color, Medical Urine Center </content>YELL OW <content styleCode="Rossy lics"> (YELLOW )</content> UNK CLEAR <content Saint styleCode="Anaid Heraclio d">Urine Medical Clarity Center </content>NELIDA R <content styleCode="Rossy lics"> (CLEAR )</content> Glucose NEGATIVE <content Saint [Mass/volume] styleCode="Anaid Pulliam in Urine by d">Urine Medical Test strip Glucose Center </content>NEGA TIVE MG/DL<content styleCode="Rossy lics"> (NEGATIVE MG/DL)</conten t> UNK NEGATIVE <content Saint styleCode="Anaid Heraclio d">Urine Medical Bilirubin Center </content>NEGA TIVE <content styleCode="Rossy lics"> (NEGATIVE )</content> Ketones NEGATIVE <content Saint [Mass/volume] styleCode="Anaid Heraclio in Urine by d">Urine Medical Test strip Ketone Center </content>NEGA TIVE MG/DL<content styleCode="Rossy lics"> (NEGATIVE MG/DL)</conten t> pH of Urine by 4.5-8.0 <content Saint Test strip styleCode="Anaid Heraclio d">Urine pH Medical </content>5.5 Center NM<content styleCode="Rossy lics"> (4.5-8.0 NM)</content> Specific 1.015-1.02 <content Saint gravity of 5 styleCode="Anaid Heraclio Urine by Test d">Urine Medical strip Specific Center [place] </content>1.01 5 NM<content styleCode="Rossy lics"> (1.015-1.025 NM)</content> Protein NEGATIVE <content Saint [Mass/volume] styleCode="Anaid Heraclio in Urine by d">Urine Medical Test strip Protein Center </content>NEGA TIVE MG/DL<content styleCode="Rossy lics"> (NEGATIVE MG/DL)</conten t> Hemoglobin NEGATIVE <content Saint [Presence] in styleCode="Anaid Streets Urine by Test d">Urine Blood Medical strip </content>TRAC Center E <content styleCode="Rossy lics"> (NEGATIVE )</content> Leukocyte NEGATIVE <content Saint esterase styleCode="Anaid Heraclio [Presence] in d">Urine Medical Urine by Test Leukocyte Center strip </content>NEGA TIVE <content styleCode="Rossy lics"> (NEGATIVE )</content> UNK 0-3 <content Saint styleCode="Anaid Heraclio d">Urine Red Medical Blood Cell Center </content>0-3 HPF<content styleCode="Rossy lics"> (0-3 HPF)</content> Urobilinogen 0.2-1.0 <content Saint [Units/volume] styleCode="Anaid Heraclio in Urine by d">Urine Medical Test strip Urobilinogen Center </content>0.2 MG/DL<content styleCode="Rossy lics"> (0.2-1.0 MG/DL)</conten t> Nitrite NEGATIVE <content Saint [Presence] in styleCode="Anaid [facility] Urine by Test d">Urine Medical strip Nitrite Center </content>NEGA TIVE <content styleCode="Rossy lics"> (NEGATIVE )</content> UNK <content Saint styleCode="Anaid Streets d">Epithelial Medical Cell Center </content>0-2 LPF (Reference Range: not available)<br/ > ID Date Data Source Liver Profile 02/15/2018 03:57:00 PM EST [facility] Name Value Range Interpretation Description Data Sup porting Code Source(s) Document(s ) Aspartate 14-36 <content Saint aminotransferase styleCode="Bold"> Richar hs [Enzymatic Aspartate Medical activity/volume] Aminotransferase Center in Serum or Plasma (AST) </content>26 IU/L<content styleCode="Italic s"> (14-36 IU/L)</content> Alkaline 38-126 <content Saint phosphatase styleCode="Bold"> Heraclio [Enzymatic Alkaline Medical activity/volume] Phosphatase (ALP) Cente r in Serum or Plasma </content>77 IU/L<content styleCode="Italic s"> (38-126 IU/L)</content> Alanine 7-30 <content Saint aminotransferase styleCode="Bold"> Richar hs [Enzymatic Alanine Medical activity/volume] Aminotransferase Center in Serum or Plasma (ALT) </content>27 IU/L<content styleCode="Italic s"> (7-30 IU/L)</content> Albumin 3.5-5.0 <content Saint [Mass/volume] in styleCode="Bold"> Richar hs Serum or Plasma Albumin Medical </content>4.8 Center G/DL<content styleCode="Italic s"> (3.5-5.0 G/DL)</content> UNK 0.0-0.3 <content Saint styleCode="Bold"> Heraclio Bilirubin, Direct Medical </content>< 0.2 Center MG/DL<content styleCode="Italic s"> (0.0-0.3 MG/DL)</content> Bilirubin.total 0.2-1.3 <content [facility] [Mass/volume] in styleCode="Bold"> [facility] hs Serum or Plasma Bilirubin Total Medical </content>0.3 Center MG/DL<content styleCode="Italic s"> (0.2-1.3 MG/DL)</content> ID Date Data Source HematologyRou 02/15/2018 03:57:00 PM EST [facility] Name Value Range Interpretation Description Data Sup porting Code Source(s) Document(s ) Leukocytes 4.4-11.0 <content [facility] [#/volume] in styleCode="Bold [facility] Blood by ">White Blood Medical Automated count Cell Count Center </content>7.81 KCUMM<content styleCode="Ital ics"> (4.4-11.0 KCUMM)</content > Hemoglobin 12.3-16. <content [facility] [Mass/volume] in 0 styleCode="Bold [facility] Blood ">Hemoglobin Medical </content>13.9 Center G/DL<content styleCode="Ital ics"> (12.3-16.0 G/DL)</content> Erythrocytes 4.0-5.1 <content [facility] [#/volume] in styleCode="Bold [facility] Blood by ">Red Blood Medical Automated count Cell Count Center </content>4.81 MCUMM<content styleCode="Ital ics"> (4.0-5.1 MCUMM)</content > Hematocrit 36.0-46. <content [facility] [Volume 0 styleCode="Bold [facility] Fraction] of ">Hematocrit Medical Blood by </content>40.7 Center Automated count %<content styleCode="Ital ics"> (36.0-46.0 %)</content> Erythrocyte mean 32.0-37. <content [facility] corpuscular 0 styleCode="Bold [facility] hemoglobin ">Mean Corpus. Medical concentration Hgb Center [Mass/volume] by Concentration Automated count (MCHC) </content>34.2 G/DL<content styleCode="Ital ics"> (32.0-37.0 G/DL)</content> Erythrocyte mean 26.0-34. <content [facility] corpuscular 0 styleCode="Bold [facility] hemoglobin ">Mean Medical [Entitic mass] Corposcular Center by Automated Hemoglobin count </content>28.9 PG<content styleCode="Ital ics"> (26.0-34.0 PG)</content> Erythrocyte mean 80.0-100 <content [facility] corpuscular .0 styleCode="Bold [facility] volume [Entitic ">Mean Medical volume] by Corpuscular Center Automated count Volume </content>84.6 FL<content styleCode="Ital ics"> (80.0-100.0 FL)</content> Platelets 130-400 <content [facility] [#/volume] in styleCode="Bold [facility] Blood by ">Platelet Medical Automated count Count Center </content>385 KCUMM<content styleCode="Ital ics"> (130-400 KCUMM)</content > Erythrocyte 11.5-14. <content [facility] distribution 5 styleCode="Bold [facility] width [Ratio] by ">Red Cell Medical Automated count Distribution Center Width </content>12.0 %<content styleCode="Ital ics"> (11.5-14.5 %)</content> Platelet mean 8.0-11.0 <content [facility] volume [Entitic styleCode="Bold [facility] volume] in Blood ">Mean Platelet Medical by Automated Volume Center count </content>8.7 FL<content styleCode="Ital ics"> (8.0-11.0 FL)</content> UNK 0 <content [facility] styleCode="Bold [facility] ">Nucleated Red Medical Blood Cell Center </content>0.0 /100<content styleCode="Ital ics"> (0 /100)</content> UNK 0.0 <content [facility] styleCode="Bold [facility] ">Nucleated Red Medical Blood Cell Center Count </content>0.00 KCUMM<content styleCode="Ital ics"> (0.0 KCUMM)</content > ID Date Data Source GFR(Creatinine) 02/15/2018 03:57:00 PM EST [facility] Name Value Range Interpretation Code Description Data Lynne rce(s) Supporting Document(s ) UNK > 60 <content [facility] styleCode="Bold"> Medical Cent er EGFR </content>156 GFR<content styleCode="Italic s"> (> 60 GFR)</content> ID Date Data Source CHMROUTINECCDA 02/15/2018 03:57:00 PM [facility] Name Value Range Interpretation Description Data Sup porting Code Source(s) Document(s ) Lipase 23-300 <content [facility] [Enzymatic styleCode="Bold Medical activity/vo ">Lipase Center lume] in </content>114 Serum or IU/L<content Plasma styleCode="Ital ics"> (23-300 IU/L)</content> UNK 30-110 <content [facility] styleCode="Bold Medical ">Amylase Center </content>69 IU/L<content styleCode="Ital ics"> (30-110 IU/L)</content> ID Date Data Source [facility] 02/15/2018 03:57:00 PM [facility] Name Value Range Interpretation Description Data Sup porting Code Source(s) Document(s ) Sodium 137-145 <content [facility] [Moles/volume] in styleCode="Bold"> [facility] Serum or Plasma Sodium Medical </content>140 Center MEQ/L<content styleCode="Italic s"> (137-145 MEQ/L)</content> Potassium 3.5-5.3 <content [facility] [Moles/volume] in styleCode="Bold"> [facility] Serum or Plasma Potassium Medical </content>3.9 Center MEQ/L<content styleCode="Italic s"> (3.5-5.3 MEQ/L)</content> Carbon dioxide, 22-30 <content [facility] total styleCode="Bold"> [facility] [Moles/volume] in Carbon Dioxide Medical Serum or Plasma </content>25 Center MEQ/L<content styleCode="Italic s"> (22-30 MEQ/L)</content> Creatinine 0.5-1.3 <content [facility] [Mass/volume] in styleCode="Bold"> [facility] hs Serum or Plasma Creatinine Medical </content>0.5 Center MG/DL<content styleCode="Italic s"> (0.5-1.3 MG/DL)</content> Chloride 98-107 <content [facility] [Moles/volume] in styleCode="Bold"> [facility] Serum or Plasma Chloride Medical </content>106 Center MEQ/L<content styleCode="Italic s"> (98-107 MEQ/L)</content> UNK 7-17 <content [facility] styleCode="Bold"> [facility] BUN </content>11 Medical MG/DL<content Center styleCode="Italic s"> (7-17 MG/DL)</content> UNK > 60 <content [facility] styleCode="Bold"> [facility] EGFR Medical </content>156 Center GFR<content styleCode="Italic s"> (> 60 GFR)</content> Glucose 74-106 <content [facility] [Mass/volume] in styleCode="Bold"> [facility] hs Serum or Plasma Glucose Medical </content>96 Center MG/DL<content styleCode="Italic s"> (74-106 MG/DL)</content> Calcium 8.4-10. <content [facility] [Mass/volume] in 2 styleCode="Bold"> [facility] hs Serum or Plasma Calcium Medical </content>9.6 Center MG/DL<content styleCode="Italic s"> (8.4-10.2 MG/DL)</content> Aspartate 14-36 <content [facility] aminotransferase styleCode="Bold"> [facility] hs [Enzymatic Aspartate Medical activity/volume] Aminotransferase Center in Serum or Plasma (AST) </content>26 IU/L<content styleCode="Italic s"> (14-36 IU/L)</content> Bilirubin.total 0.2-1.3 <content [facility] [Mass/volume] in styleCode="Bold"> [facility] hs Serum or Plasma Bilirubin Total Medical </content>0.3 Center MG/DL<content styleCode="Italic s"> (0.2-1.3 MG/DL)</content> Alanine 7-30 <content [facility] aminotransferase styleCode="Bold"> [facility] hs [Enzymatic Alanine Medical activity/volume] Aminotransferase Center in Serum or Plasma (ALT) </content>27 IU/L<content styleCode="Italic s"> (7-30 IU/L)</content> Alkaline 38-126 <content [facility] phosphatase styleCode="Bold"> [facility] [Enzymatic Alkaline Medical activity/volume] Phosphatase (ALP) Cente r in Serum or Plasma </content>77 IU/L<content styleCode="Italic s"> (38-126 IU/L)</content> Albumin 3.5-5.0 <content [facility] [Mass/volume] in styleCode="Bold"> [facility] hs Serum or Plasma Albumin Medical </content>4.8 Center G/DL<content styleCode="Italic s"> (3.5-5.0 G/DL)</content> Procedure Social History Code Duration Value Status Description Data Source(s ) Smoking 11/29/2019 Never Smoker completed Never Smoker eCW3 ([place] 12:00:00 AM [facility]) Smoking 02/02/2019 Denies Ever completed Denies Ever [place] 12:25:00 PM Smoked Smoked Medical Cente r EDT Smoking 02/02/2019 Denies Ever completed Denies Ever [place] 11:05:00 AM Smoked Smoked Medical Cente r EDT Smoking 02/02/2019 Denies Ever completed Denies Ever [place] 10:52:00 AM Smoked Smoked Medical Cente r EDT Smoking 01/30/2019 Never Smoker completed Never Smoker eCW3 ([place] 12:00:00 AM [facility]) Smoking 01/30/2019 Never Smoker completed Never Smoker eCW3 ([place] 12:00:00 AM [facility]) Smoking 08/11/2018 Denies Ever completed Denies Ever [place] 01:26:00 AM Smoked Smoked Medical Cente r EDT Smoking 08/11/2018 Denies Ever completed Denies Ever [place] 01:05:00 AM Smoked Smoked Medical Cente r EDT Smoking 08/11/2018 Denies Ever completed Denies Ever [place] 01:01:00 AM Smoked Smoked Medical Cente r EDT Smoking 02/15/2018 [id number] completed [facility] 05:30:00 PM Medical Cente r EST Smoking 02/15/2018 [id number] completed [facility] 03:17:00 PM Medical Cente r EST Smoking 03/04/2017 Never smoked completed Never smoked VIKTOR ( [facility] 09:23:36 AM tobacco tobacco Zafar EST (finding) (finding) [facility]) Caffeine Use 01/05/2014 completed NEXTGEN (Jules nt Details 12:00:[address] [facility]) Smoking 01/05/2014 Never smoker completed Never smoker NEXTGEN (S aint 12:00:[address] [facility]) Never Smoker completed Never Smoker eCW3 ([facility]) Never Smoker completed Never Smoker eCW3 ([facility]) Never Smoker completed Never Smoker eCW3 ([facility]) Alcohol Use completed NEXTGEN (Mari t Details [facility]) Assertion Non-smoker completed VIKTOR (Moun t [facility]) Assertion High risk sexual completed High risk sexual GR EENWAY ([facility] behavior behavior Zafar (finding) ([facility]) [facility]) Assertion Intravenous drug completed Intravenous drug GR EENWAY ([facility] user (finding) user (finding) [facility]) Assertion Smoker (finding) completed Smoker (finding) GR EENWAY ([facility]) Assertion Sexually active completed Sexually active SUSAN CASE ([facility] (finding) (finding) [facility]) Assertion Social and completed Social and VIKTOR (Moun t personal history personal history Ve rnon finding finding Neighborhood (finding) ([facility]) [facility]) Assertion Tobacco user completed Tobacco user VIKTOR ( [facility] (finding) (finding) [facility]) Assertion Finding relating completed Finding relating GR EENWAY ([facility] to drug misuse to drug misuse Zafar behavior behavior [facility] (finding) ([facility]) [facility] [place]) Assertion Current drinker completed Current drinker GREChristophe CASE ([facility] of alcohol of alcohol Zafar (finding) ([facility]) [facility]) Assertion Finding of completed Finding of VIKTOR (Moun t activity of activity of Zafar daily living daily living [place] (finding) ([facility]) [facility]) Assertion sexual history completed VIKTOR ( [facility]) Assertion Physical completed Physical VIKTOR (Moun t handicap handicap Zafar (finding) ([facility]) [facility]) Assertion Finding of life completed Finding of life SUSAN CASE ([facility] event (finding) event (finding) [facility] Assertion Finding of completed Finding of VIKTOR (Moun t functional functional [place] performance and performance and Neig hborhood activity activity [facility]) (finding) (finding) Assertion Caffeine user completed Caffeine user UKIAH ([facility] (finding) (finding) [facility]) Assertion Exercise history completed Exercise history GR EEEVIE ([facility] finding finding [place] (finding) (finding) [facility]) Vital Signs ID Date Data Source UNK Name Value Range Interpretation Code Description Data Source(s) Body temperature 36.869826 36.029715 [facility] Respiratory rate 17 /min 17 /min [facility] Oxygen saturation 96 % 96 % [facility] Arterial blood [facility] by Pulse oximetry Heart rate 86 /min 86 /min [facility] Body height 149.703045 149.929294 cm [facility] Diastolic blood 74 mm[Hg] 74 mm[Hg] [facility] Center Systolic blood 127 mm[Hg] 127 mm[Hg] [facility] Diastolic blood 70 mm[Hg] 70 mm[Hg] eCW3 ([facility]) Systolic blood 104 mm[Hg] 104 mm[Hg] eCW3 ([facility]) Body temperature 98.0 [degF] 98.0 [degF] eCW3 ( [facility]) Body mass index 31.64 kg/m2 31.64 kg/m2 eCW3 (H udson (BMI) [Ratio] [facility]) Body weight 162 [lb_av] 162 [lb_av] eCW3 ([facility]) Body height 60 [in_i] 60 [in_i] eCW3 ([facility]) Body weight 72.662581 72.031403 kg [facility] hs Measured kg Medical Center Body temperature 36.006777 36.872029 [facility] Respiratory rate 17 /min 17 /min [facility] Oxygen saturation 98 % 98 % [facility] in Arterial [facility] by Pulse oximetry Heart rate 83 /min 83 /min [facility] Diastolic blood 94 mm[Hg] 94 mm[Hg] [facility] Center Systolic blood 153 mm[Hg] 153 mm[Hg] [facility] Diastolic blood 68 mm[Hg] 68 mm[Hg] eCW3 ([facility]) Systolic blood 107 mm[Hg] 107 mm[Hg] eCW3 ([facility]) Body temperature 98.4 [degF] 98.4 [degF] eCW3 ( [facility]) Body mass index 31.24 kg/m2 31.24 kg/m2 eCW3 (H udson (BMI) [Ratio] [facility]) Body weight 160 [lb_av] 160 [lb_av] eCW3 ([facility]) Body height 60 [in_i] 60 [in_i] eCW3 ([facility]) Diastolic blood 61 mm[Hg] 61 mm[Hg] eCW3 ([facility]) Systolic blood 97 mm[Hg] 97 mm[Hg] eCW3 ([facility]) Body temperature 98.5 [degF] 98.5 [degF] eCW3 ( [facility]) Body mass index 31.24 kg/m2 31.24 kg/m2 eCW3 (H [place] (BMI) [Ratio] [facility]) Body weight 160 [lb_av] 160 [lb_av] eCW3 ([facility]) Body height 60 [in_i] 60 [in_i] eCW3 ([facility]) PhenX - pain, 8 8 VIKTOR ([facility]) Patient states that she is experiencing sore throat, nasal congestion and headache. Body surface area Derived from 1.66 m2 1.66 m2 UKIAH ([facility]) Patient states that she is experiencing sore throat, nasal congestion and headache. Body mass index (BMI) 29.8 kg/m2 29.8 kg/m2 GRE ENWAY ([place] [Ratio] [facility]) Patient states that she is experiencing sore throat, nasal congestion and headache. Body weight 152.8 [lb_av] 152.8 [lb_av] GREENWA ([facility]) Patient states that she is experiencing sore throat, nasal congestion and headache. Body height 60 [in_us] 60 [in_us] VIKTOR (O[facility] nt [facility]) Patient states that she is experiencing sore throat, nasal congestion and headache. Body temperature 98.1 [degF] 98.1 [degF] CALLIW AY ([facility]) Patient states that she is experiencing sore throat, nasal congestion and headache. Respiratory rate 18 /min 18 /min VIKTOR ([facility]) Patient states that she is experiencing sore throat, nasal congestion and headache. Heart rate rhythm 1 1 GREENWA Y ([facility]) Patient states that she is experiencing sore throat, nasal congestion and headache. Heart rate 75 /min 75 /min VIKTOR (Sc[facility]) Patient states that she is experiencing sore throat, nasal congestion and headache. Diastolic blood pressure 85 mm[Hg] 85 mm[Hg] VIKTOR ([facility]) Patient states that she is experiencing sore throat, nasal congestion and headache. Systolic blood pressure 123 mm[Hg] 123 mm[Hg] G REENJEY ([facility]) Patient states that she is experiencing sore throat, nasal congestion and headache. Body temperature 37.607971 [facility]oh 37.159686 [facility] Respiratory rate 18 /min 18 /min [facility] Deprecated Oxygen 97 % 97 % [facility] saturation in Capillary [facility] blood by Oximetry Heart rate 67 /min 67 /min [facility] Systolic blood pressure 57 mm[Hg] 57 mm[Hg] [facility] Diastolic blood 99 mm[Hg] 99 mm[Hg] [facility] Body weight Measured 60.770671 kg 60.432781 kg [facility] Body temperature 37.702845 Shiloh 37.998677 [facility] Respiratory rate 18 /min 18 /min [facility] Deprecated Oxygen 98 % 98 % [facility] saturation in Capillary [facility] blood by Oximetry Heart rate 89 /min 89 /min [facility] Body height 167.662905 cm 167.668006 cm [facility] Systolic blood pressure 77 mm[Hg] 77 mm[Hg] [facility] Diastolic blood 118 mm[Hg] 118 mm[Hg] [facility] Body mass index (BMI) 21.3 kg/m2 21.3 kg/m2 [facility] [Ratio] [facility] Oxygen saturation in 99 % 99 % NEXT GEN ([facility] Arterial blood by Pulse [facility] oximetry Center) Body mass index (BMI) 30.53 kg/m2 Overweight 30.53 kg/m2 N EXTGEN ([facility] [Ratio] [facility]) Respiratory rate 20 /min 20 /min [facility]S [facility] Body temperature 98.60 [degF] 98.60 [degF] NEXT [facility] ([facility]) Heart rate 63 /min 63 /min [facility] Diastolic blood 65 mm[Hg] 65 mm[Hg] COUNTS [facility] ( [facility]) Systolic blood pressure 102 mm[Hg] 102 mm[Hg] N EXTGEN ([facility]) Body weight 148.60 [lb_av] 148.60 [lb_av] NEXTG EN ([facility]) Body height 0.00 cm 0.00 cm COUNTS [facility] Body mass index (BMI) 30.81 kg/m2 Overweight 30.81 kg/m2 N EXTGEN ([facility] [Ratio] [facility]) Respiratory rate 20 /min 20 /min COUNTS [facility]CLUDE [facility]) Body temperature 98.10 [degF] 98.10 [degF] NEXT [facility] ([facility]) Heart rate 77 /min 77 /min COUNTS [facility]) Diastolic blood 78 mm[Hg] 78 mm[Hg] NEXTGEN ( [facility]) Systolic blood pressure 110 mm[Hg] 110 mm[Hg] N EXTGEN ([facility]) Body weight 150.00 [lb_av] 150.00 [lb_av] [facility]) Body height 0.00 cm 0.00 cm COUNTS [facility]CLUDE [facility] Patient Treatment Plan of Care Planned Activity Planned Date Details Description Data Source (s) Ibuprofen 600 MG Oral Tablet 11/29/2019 eCW3 ([place] 12:00:00 AM [facility]) Amoxicillin 875 MG / 05/09/2018 GREENWA Y ([place] Clavulanate 125 MG Oral 12:00:00 AM [facility]) Loratadine 10 MG Oral 05/09/2018 GREENW AY ([place] Capsule 12:00:[address] [facility]) 60 ACTUAT Albuterol 0.09 05/09/2018 GRE ENWAY ([place] MG/ACTUAT Metered Dose 12:00:00 AM [facility] Inhaler [facility]) Ergocalciferol 66044 UNT 08/31/2017 eCW 3 ([place] Oral Capsule 12:00:00 AM [facility]) Ergocalciferol 93803 UNT 08/31/2017 eCW 3 ([place] Oral Capsule 12:00:00 AM [facility]) Amoxicillin 500 MG Oral 03/04/2017 GREE NWAY ([place] Tablet 12:00:[address] [facility]) Amoxicillin 875 MG / 09/11/2016 GREENWA Y ([place] Cl[facility]ulanate 125 [facility] Loratadine 10 MG Oral 09/11/2016 GREENW AY ([place] Capsule 12:00:00 AM [facility]) Acetaminophen 325 MG Oral 09/11/2016 GR EENWAY ([place] Tablet 12:00:00 AM [facility]) valacyclovir 500 MG Oral 03/09/2016 GRE ENWAY ([place] Tablet 12:00:[address] [facility]) Fenofibrate 145 MG Oral 09/23/2015 GREE NWAY ([place] Tablet 12:00:00 AM [facility]) Fenofibrate 48 MG Oral 09/11/[address] ([place] Tablet 12:00:00 AM [facility]) Ibuprofen 600 MG Oral Tablet 07/15/2015 VIKTOR ([place] 12:00:00 AM [facility]) Ergocalciferol 39700 UNT 05/29/2015 GRE ENWAY ([place] Oral Capsule 12:00:[address] [facility]) Amoxicillin 500 MG Oral 05/17/2015 GREE NWAY ([place] Tablet 12:00:[address] [facility]) Benzocaine 15 MG / Menthol 05/13/2015 G REENWAY ([place] 2.6 MG Oral Lozenge 12:00:00 AM [facility]) medroxyprogesterone acetate 05/06/2015 VIKTOR ([place] 10 MG Oral Tablet 12:00:00 AM [facility]) medroxyprogesterone acetate 05/06/2015 VIKTOR ([place] 10 MG Oral Tablet 12:00:00 AM [facility]) Colchicine 0.6 MG Oral 01/24/[address] ([place] Tablet 12:00:00 AM EDT [facility]) Fenofibrate 48 MG Oral 01/24/[address] ([place] Tablet 12:00:00 AM [facility]) Medrol (Todd) 4 mg tablets in 12/04/2014 NEXTGEN ([facility] a dose pack 12:00:00 AM [facility]) Indomethacin 50 MG Oral 12/04/2014 NEXT GEN ([facility] Capsule 12:00:00 AM [facility]) Ortho Tri-Cyclen (28) 0.18 06/28/2014 N EXTGEN ([facility] mg(7)/0.215 mg(7)/[facility]7)-35 [facility]) Amoxicillin 875 MG / 06/01/2014 NEXTGEN ([facility] Clavulanate 125 MG Oral 12:00:00 AM [facility] Medical Tablet [Augmentin] Center) Azithromycin 500 MG Oral 04/09/2014 NEX TGEN ([facility] Tablet 12:00:00 AM [facility]) Azithromycin 500 MG Oral 01/10/2014 NEX TGEN ([facility] Tablet 12:00:00 AM [facility]) Ketoconazole 10 MG/ML 12/11/2013 NEXTGE N ([facility] Medicated Shampoo 12:00:00 AM [facility]) selenium sulfide 10 MG/ML 01/13/2013 GR EENWAY ([place] Medicated Shampoo 12:00:00 AM [facility]) Ibuprofen 800 MG Oral Tablet [facility] Naproxen 500 MG Oral Tablet [facility] Amoxicillin 875 MG / [facility] Clavulanate 125 MG Oral Cent er Tablet Famotidine 40 MG Oral Tablet [facility]
[2019-12-21 10:22] LABS: BASO % 0.8 % (0-2.0); EOS % 1.3 % (0-4.5); HEMATOCRIT 38.6 % (32.4-45.2); HEMOGLOBIN 13.5 GM/dL (10.7-15.3); LYMPH % 31.5 % (8-40); MCH 30.6 pg (25.7-33.7); MCHC 35.1 g/dl (32.0-36.0); MEAN CELL VOLUME 87.1 fl (80-96); MEAN PLT VOLUME 6.7 fl (7.5-11.1); MONO % 4.8 % (3.8-10.2); NEUT % 61.6 % (42.8-82.8); PLATELET COUNT 369 K/MM3 (134-434); RBC 4.43 M/mm3 (3.60-5.2); RDW 12.9 % (11.6-15.6); WHITE BLOOD COUNT 6.9 K/mm3 (4.0-10.0)
[2019-12-21 10:34] LABS: PH,URINE 5.5 (5.0-8.0); URINE APPEARANCE CLEAR; URINE BILIRUBIN NEGATIVE (NEGATIVE); URINE COLOR YELLOW; URINE GLUCOSE (UA) NEGATIVE (NEGATIVE); URINE KETONE NEGATIVE (NEGATIVE); URINE LEUK ESTERASE NEGATIVE (NEGATIVE); URINE NITRITE NEGATIVE (NEGATIVE); URINE PROTEIN NEGATIVE (NEGATIVE); URINE UROBILINOGEN 0.2 mg/dL (0.2-1.0)
[2019-12-21 10:46] LABS: ALBUMIN 3.9 g/dl (3.4-5.0); BILIRUBIN,TOTAL 0.4 mg/dL (0.2-1); BLOOD UREA NITROGEN 11.4 mg/dL (7-18); CALCIUM 9.1 mg/dL (8.5-10.1); CREATININE 0.7 mg/dL (0.55-1.3); MAGNESIUM 2.1 mg/dL (1.8-2.4); POTASSIUM 4.1 mmol/L (3.5-5.1); TOT PROT 7.7 g/dl (6.4-8.2)
--- NOTE | 2019-12-21 11:05 | PDOC ---
History of Present Illness - General Chief Complaint: Headache Stated Complaint: HEADACHE Time Seen by Provider: 12/21/19 09:21 History Source: Patient Exam Limitations: No Limitations - History of Present Illness Initial Comments: 12/21/19 11:02 29-year-old female Polish-speaking history of irregular menses, tested positive for covid 07/2019, hyperlipidemia presents complaining of constant throbbing frontal headache x 5 days with nausea. Denies changes in vision, weakness, numbness and tingling, fever, chills, neck pain, rash, arthralgias, chest pain, abdominal pain, vomiting, diarrhea, recent travel or recent sick contacts. Took acetaminophen today at 4 AM with no relief. ROS: as above PE: GENERAL: well-appearing, NAD HEAD: NCAT EYES: Pupils equal, round and reactive to light, sclera anicteric, conjunctiva clear ENT: Bilateral normal ear canals, normal TMs, pharynx: no erythema, no exudate, uvula midline NECK: supple, no lymphadenopathy CHEST: nontender RESP: clear, no w/r/r CARDIO: rrr, no m/g/r ABD: +BS, soft, nontender, non distended BACK: no midline spinal ttp, no CVAT EXTREMITIES: Normal range of motion, no edema NEUROLOGICAL: Normal speech, normal gait SKIN: Warm, Dry Is this a multiple visit Asthma Patient?: No Past History - Medical History Allergies/Adverse Reactions: Allergies Allergy/AdvReac Type Severity Reaction Status Date / Time No Known Allergies Allergy Verified 12/21/19 09:53 Home Medications: Ambulatory Orders NK [No Known Home Medication] 08/20/15 COPD: No - Surgical History Lung Surgery: No - Reproductive History Is Patient Now?: No - Immunization History Immunization Up to Date: No - Psycho-Social/Smoking History Smoking History: Never smoked Have you smoked in the past 12 months: No Information on smoking cessation initiated: No 'Breaking Loose' booklet given: 08/20/15 - Substance Abuse Hx (Audit-C & DAST Scrn) How often the patient has a drink containing alcohol: Never Score: In Men: 4 or > Positive; In Women: 3 or > Positive: 0 Screen Result (Pos requires Nsg. Audit-10AR): Negative In the last yr the pt used illegal drug/Rx for NonMed reason: No Score: Yes response is considered Positive: 0 Screen Result (Positive result requires Nsg. DAST-10): Negative *Physical Exam - Vital Signs Last Vital Signs Temp Pulse Resp BP Pulse Ox 98.2 F 77 18 110/72 99 12/21/19 09:01 12/21/19 09:01 12/21/19 09:01 12/21/19 09:01 12/21/19 09:01 ED Treatment Course - LABORATORY CBC & Chemistry Diagram: 12/21/19 10:00 12/21/19 10:00 - ADDITIONAL ORDERS Additional order review: Laboratory Results 12/21/19 12/21/19 10:00 10:00 Sodium 137 Potassium 4.1 Chloride 105 Carbon Dioxide 29 Anion Gap 4 L BUN 11.4 Creatinine 0.7 Est GFR (CKD-EPI)AfAm 134.75 Est GFR (CKD-EPI)NonAf 116.26 Random Glucose 104 Calcium 9.1 Magnesium 2.1 Total Bilirubin 0.4 AST 24 ALT 46 Alkaline Phosphatase 82 Total Protein 7.7 Albumin 3.9 Urine Color Yellow Urine Appearance Clear Urine pH 5.5 Ur Specific [place] 1.008 L Urine Protein Negative Urine Glucose (UA) Negative Urine Ketones Negative Urine Blood Negative Urine Nitrite Negative Urine Bilirubin Negative Urine Urobilinogen 0.2 Ur Leukocyte Esterase Negative 12/21/19 10:00 RBC 4.43 MCV 87.1 MCHC 35.1 RDW 12.9 MPV 6.7 L Neutrophils % 61.6 Lymphocytes % 31.5 Monocytes % 4.8 Eosinophils % 1.3 Basophils % 0.8 - RADIOLOGY Radiology Studies Ordered: Category Date Time Status HEAD CT WITHOUT CONTRAST [CT] Stat CT Scan 12/21/19 11:01 Ordered - Medications Given in the ED: ED Medications Discontinued Medications Generic Name Dose Route Start Last Admin Trade Name Freq PRN Reason Stop Dose Admin Ondansetron HCl 4 mg 12/21/19 09:48 12/21/19 10:15 Zofran Injection IVPUSH 12/21/19 09:49 4 mg ONCE ONE Administration Sodium Chloride 1,000 ml 12/21/19 09:48 12/21/19 10:15 Normal Saline - IV 12/21/19 09:49 1,000 ml ONCE ONE Administration Medical Decision Making - Medical Decision Making 12/21/19 11:05 29-year-old female Polish-speaking history of irregular menses, tested positive for covid 07/2019, hyperlipidemia presents complaining of constant throbbing frontal headache x 5 days with nausea. Denies changes in vision, weakness, nu mbness and tingling, fever, chills, neck pain, rash, arthralgias, chest pain, abdominal pain, vomiting, diarrhea, recent travel or recent sick contacts. Took acetaminophen today at 4 AM with no relief. labs IVF po zofran head CT w/o con Reassess 12/21/19 16:39 Reviewed labs and head CT with Patient improved greatly after IV fluids, IV Reglan and p.o. acetaminophen Stable for discharge Discharge - Discharge Information Problems reviewed: Yes Clinical Impression/Diagnosis: Headache Qualifiers: Headache type: unspecified Headache chronicity pattern: unspecified pattern Intractability: not intractable Qualified Code(s): R51 - Headache Condition: Stable Disposition: HOME - Admission No - Follow up/Referral - Patient Discharge Instructions Additional Instructions: Rest, remain hydrated, alternate between acetaminophen and ibuprofen every 6 hours as needed for pain Follow-up with your doctor within 1 week If any concerning symptoms return to ED immediately - Post Discharge Activity
[2019-12-21 11:07] LABS: HCG,QUALITATIVE URINE Negative
[2019-12-21] MEDS ORDERED: KETOROLAC TROMETHAMINE 30 MG/1 ML VIAL IVPUSH ONE (13:00)
[2019-12-21] MEDS ORDERED: KETOROLAC TROMETHAMINE 30 MG/1 ML VIAL ONE (13:06)
[2019-12-21 14:12] VITALS: BP 107/69; PULSE 65
[2019-12-21] MEDS ORDERED: METOCLOPRAMIDE HCL INJECTION 10 MG/2 ML VIAL IVPUSH ONE (15:02)
[2019-12-21] MEDS ORDERED: ACETAMINOPHEN 500 MG TABLET (FP) PO ONE (15:03)
[2019-12-21] MEDS ORDERED: METOCLOPRAMIDE HCL INJECTION 10 MG/2 ML VIAL ONE (15:19)
[2019-12-21] MEDS ORDERED: ACETAMINOPHEN 500 MG TABLET (FP) ONE (15:26)
== END 2019-12-21 16:55 | disposition home or self-care (01) ==
LOC: JER 08:54
PROC: 3E0333Z Introduction of Anti-inflammatory into Peripheral Vein, Percutaneous Approach (ICD-10-PCS; principal; 2019-12-21)
PROC: 3E033GC Introduction of Other Therapeutic Substance into Peripheral Vein, Percutaneous Approach (ICD-10-PCS; 2019-12-21)
DX: R51 Headache (principal)
CPT/HCPCS: 36415; 70450-TC; 80053; 81003; 83735; 84703; 85025; 99284-25

== ENCOUNTER 2020-04-23 17:58 | Emergency (ER) | payer OTHER ==
[2020-04-23 18:15] VITALS: BP 127/86; PULSE 66; TEMP 97.9; BMI 33.3
== END 2020-04-23 21:15 | disposition home or self-care (01) ==
LOC: JER 17:58
DX: J02.9 Acute pharyngitis, unspecified (principal); R51.9 Headache, unspecified; R07.9 Chest pain, unspecified; R05 Cough; B34.9 Viral infection, unspecified; Z11.52 Encounter for screening for COVID-19
CPT/HCPCS: 93005; 93010; 99284-25; C9803; U0003

== ENCOUNTER 2021-09-24 16:24 | Emergency (ER) | payer OTHER ==
[2021-09-24 16:58] VITALS: BP 111/69; PULSE 63; TEMP 98; BMI 34.3
[2021-09-24] MEDS ORDERED: KETOROLAC TROMETHAMINE 30 MG/1 ML VIAL IM ONE (17:47)
[2021-09-24] MEDS ORDERED: KETOROLAC TROMETHAMINE 30 MG/1 ML VIAL ONE (18:05)
== END 2021-09-24 19:00 | disposition home or self-care (01) ==
LOC: JERFT 16:24
PROC: 3E023GC Introduction of Other Therapeutic Substance into Muscle, Percutaneous Approach (ICD-10-PCS; principal; 2021-09-24)
DX: M25.561 Pain in right knee (principal)
CPT/HCPCS: 73562-TC-RT-FY; 99284-25